=== PATIENT | male | born 1945 | race Caucasian/White ===

== ENCOUNTER → 2018-01-16 | Outpatient (CLI) | payer OTHER | LOC: M.ULTRA 07:33 | DX: N18.3 Chronic kidney disease, stage 3 (moderate) (principal) ==

== ENCOUNTER 2019-04-30 17:30 | Inpatient (IN) | payer OTHER ==
[~2019-04-30] VITALS: Ht 190.5 cm; Wt 115.2 kg
[2019-04-30 17:35] VITALS: BP 164/75
[2019-04-30] MEDS ORDERED: SYNTHROID150 MCG PO (17:38)
[2019-04-30] MEDS ORDERED: VITAMIN D3400 UNIT PO (17:39)
[2019-04-30] MEDS ORDERED: HYDROCHLOROTH12.5 M1 PO (17:39)
--- NOTE | 2019-04-30 17:40 | NUR ---
DR. BARBER AT BEDSIDE WITH PATIENT.
[2019-04-30 17:57] LABS: ABSOLUTE EOSINOPHILS 0.2 thou/uL (0.0-0.7); ABSOLUTE LYMPHOCYTES 1.6 thou/uL (0.8-5.3); ABSOLUTE MONOCYTES 0.7 thou/uL (0.0-1.2); BASOPHILS 0.3 %; EOSINOPHILS 2.3 %; HEMATOCRIT 40.7 % (42.0-52.0); HEMOGLOBIN 13.7 gm/dL (14.0-18.0); LYMPHOCYTES 24.4 %; MCH 31.1 pg (26.0-34.0); MCHC 33.7 g/dL (28.0-37.0); MCV 92.2 fL (80.0-100.0); MONOCYTES 11.1 %; MPV 8.1 fl. (7.2-11.1); NUCLEATED RBCS 0 /100WBC; PLATELET COUNT* 217 thou/uL (150-400); POLYS 61.9 %; RBC 4.42 mil/uL (4.50-6.00); RDW-CV 13.3 % (10.5-14.5); WBC 6.5 thou/uL (4.0-11.0)
[2019-04-30 18:22] LABS: CALCIUM 9.1 mg/dL (8.5-10.1); CREATININE 2.6 mg/dL (0.6-1.3); POTASSIUM 4.7 mmol/L (3.5-5.1)
[2019-04-30 18:24] LABS: APTT 27.7 Seconds (25.0-31.3); INR 1.1; PROTIME 10.8 Seconds (9.20-11.50)
[2019-04-30 18:38] LABS: ALBUMIN 4.1 g/dL (3.4-5.0); TOTAL BILIRUBIN 0.5 mg/dL (<0.1-1.0); TOTAL PROTEIN 7.8 g/dL (6.4-8.2)
[2019-04-30 18:39] LABS: TROPONIN-I LEVEL 0.6 ng/mL (<0.06)
[2019-04-30 19:57] VITALS: BP 138/66
[2019-04-30 21:18] LABS: URINE BILIRUBIN NEGATIVE (Negative); URINE BLOOD 2+ (Negative); URINE CLARITY CLEAR; URINE COLOR YELLOW; URINE GLUCOSE-RANDOM NEGATIVE (Negative); URINE KETONES NEGATIVE (Negative); URINE LEUKOCYTES-REFLEX NEGATIVE (Negative); URINE NITRITE-REFLEX NEGATIVE (Negative); URINE PROTEIN 2+ (Negative); URINE UROBILINOGEN 0.2 E.U./dl (0.2-1.0)
[2019-04-30 21:29] LABS: HYALINE CASTS 0-3 Few /LPF (None Seen); URINE RBC 0-2 Rare /HPF (0-2); URINE WBC-REFLEX 0-5 Rare /HPF (0-5)
[2019-04-30 21:30] LABS: BACTERIA-REFLEX None Seen /HPF (None Seen); CRYSTALS None Seen /LPF (None Seen); MUCUS None Seen strn/LPF (None Seen); SQUAMOUS NONE SEEN /LPF (0-3)
[2019-04-30] MEDS ORDERED: GLIPIZIDE ER2.5 MG PO (22:01)
[2019-04-30] MEDS ORDERED: LIPITOR10 MG PO (22:01)
[2019-04-30] MEDS ORDERED: NORVASC10 MG PO (22:02)
[2019-04-30 23:30] VITALS: BP 124/59
[2019-05-01] VITALS (14 sets, daily range): BP systolic 103–160; BP diastolic 53–80
[2019-05-01 05:01] LABS: ABSOLUTE BASOPHILS 0.1 thou/uL (0.0-0.2); ABSOLUTE EOSINOPHILS 0.2 thou/uL (0.0-0.7); ABSOLUTE LYMPHOCYTES 1.5 thou/uL (0.8-5.3); ABSOLUTE MONOCYTES 0.6 thou/uL (0.0-1.2); ABSOLUTE NEUTROPHILS 2.3 thou/uL (1.6-8.1); BASOPHILS 1.7 %; EOSINOPHILS 3.7 %; HEMATOCRIT 36.5 % (42.0-52.0); HEMOGLOBIN 12.5 gm/dL (14.0-18.0); LYMPHOCYTES 32.7 %; MCH 31.2 pg (26.0-34.0); MCHC 34.2 g/dL (28.0-37.0); MCV 91.3 fL (80.0-100.0); MONOCYTES 13.7 %; MPV 7.6 fl. (7.2-11.1); NUCLEATED RBCS 0 /100WBC; PLATELET COUNT* 185 thou/uL (150-400); POLYS 48.2 %; RDW-CV 13.1 % (10.5-14.5); WBC 4.7 thou/uL (4.0-11.0)
[2019-05-01 05:10] LABS: CALCIUM 8.7 mg/dL (8.5-10.1); CREATININE 2.3 mg/dL (0.6-1.3); POTASSIUM 4.1 mmol/L (3.5-5.1)
--- NOTE | 2019-05-01 06:56 | NUR ---
RECEIVED REPORT FROM ELECTRICAL APPLIANCE SERVICER DAHIANA AT 1950. PT ARRIVED TO UNIT AT 2009. NURSING ASSESSMENT COMPLETED, DENIES PAIN, SR/SB/ JUNCTIONAL RHYTHM ON FAMILY PRACTICE PHYSICIAN. AT 041, PT C/O CHEST PAIN AND LEFT ARM PAIN. DR. STEWART NOTIFIED, NEW ORDERS RECEIVED. PT VERBALIZED IMPROVEMENT OF CHEST PAIN WITH NITRO PASTE, HEPARIN DRIP INFUSING. HOURLY ROUNDING COMPLETED, CALL LIGHT WITHIN REACH. NEGATIVE SEPSIS PROTOCOL.
--- NOTE | 2019-05-01 08:47 | NUR ---
ASSUMED CARE OF PT THIS AM AROUND 0715- INTENSIVE CARE UNIT REGISTERED NURSE IN PLACE ORDERED, TRACING SB/PAC- UPON ASSESSMENT PT NOTED TO BE RESTING IN BED- PT A&O X4-CONTINENT OF BOWEL AND BLADDER- UP AD-BRENDA IN ROOM, STEADY GAIT- LCTA, RESP EVEN AND UN-LABORED- VSS, O2 STAT 97% ON 2L VIA NC-ABD SOFT/ROUND/NON-TENDER, BS X4 QUADS- LAST BM REPORTED 04/30/19- IV NOTED TO RIGHT AC INTACT, IVF INFUSSING WELL HEPARIN DRIP PER PROTOCOL- PT CURRENLTY NPO PENDING CARDIO EVAL AND PLANS- RATES LEFT SHOULDER PAIN/ELBOW 11/04 THIS AM- NITRO PASTE IN PLACE PRESCIBED- CALL LIGHT AND PEROSONAL BELONGINGS WITH IN REACH- PT MAKES NEEDS KNOWN- ALL NEEDS MET AT THIS TIME-WCTM
[2019-05-01 09:47] LABS: CHOLESTEROL 66 mg/dL (<200); HDL CHOLESTEROL 26 mg/dL (>40); LDL CHOLESTEROL 25 mg/dL (<100); TC:HDL 2.5 Ratio (Not establshd); TRIGLYCERIDE 79 mg/dL (<150); VLDL 16 mg/dL (<40)
[2019-05-01 09:50] LABS: SERUM ASSESSMENT Clear
--- NOTE | 2019-05-01 11:27 | NUR ---
SW met with pt to complete initial assessment, introduce self, and SW role. Pt was sleeping, pt had multiple family members in room visiting: children, , grandchild. Pt lives at home with and pt is independent with ADLs and mobility. Pt family is very supportive and do not know of any dc needs at this time. SW to continue to follow to assist with safe dc planning.
--- NOTE | 2019-05-01 16:06 | NUR ---
PT NOTED TO HAVE LEFT UNIT AT 1100 THIS SHIFT FOR HEART CATH ORDERED AND RETURNED AT 1350- RIGHT GROIN ACCESSED WITH 1 STENT REPORTED TO HAVE BEEN PLACED TO MID LAD- GROIN NOTED WITH TRANSPARENT GAUZE DRESSING IN PLACE, NO HEMATOMA NOTED- RT LEG IMMOBILIZATION INSTRUCTED- VS 97.4 18 143/75 56 97% ON 2L- VS PER PROTOCOL IN PLACE- UPON RETURNING TO UNIT PT NOTED TO BE IN ALOT OF PAIN RATING 10/10 TO LEFT ARM AND BACK- PRN HYDROCODONE GIVEN AT 1415 WITH LITTLE EFFECTIVENESS- AND FENT 50MCG X1 AT 1449 GIVEN ORDERED- PT REPORTS MEDICATIONS TO BE EFFECTIVE- ECHO COMPLETED THIS SHIFT ORDERED, RESULTS PENDING- FAMILY CURRENLTY AT SIDE- CALL LIGHT AND PERSONAL BELONGINGS WITH IN REACH- ALL NEEDS MET AT THIS TIME-[facility]
--- NOTE | 2019-05-01 16:42 | 2DMMODE ---
[place] [id number] 2 D/M-MODE ECHOCARDIOGRAM Name: KARAL TURCIOS Room: [address] IN [facility]#: [id number] Admission: 04/30/19 Attend Phys: Koby Rios, Discharge: Date of : 45 Date of Service: 05/01/19 1642 Report #: [id number] THIS REPORT FOR: //name// APPROVED REPORT Study performed: 05/01/2019 14:43:43 EXAM: Comprehensive 2D, Doppler, and color-flow Echocardiogram Patient Location: In-Patient Room #: 200 Status: routine BSA: 2.43 HR: 57 bpm BP: 120/60 mmHg Rhythm: NSR Other Information Technically limited study due to inability to position patient. Indications Non STEMI Left Ventricle The left ventricle is normal size. There is normal LV segmental wall motion. There is normal left ventricular wall thickness. The left ventricular systolic function is normal. The left ventricular ejection fraction is within the normal range. LVEF is 60-65%. Right Ventricle The right ventricle is normal size. The right ventricular systolic function is normal. Atria The left atrium size is normal. The right atrium size is normal. Aortic Valve Mild aortic valve sclerosis. No aortic regurgitation is present. Mitral Valve The mitral valve is normal in structure. There is no mitral valve regurgitation noted. [address] [address] 2 D/M-MODE ECHOCARDIOGRAM Name: KARLA TURCIOS Room: [address] IN M.R.#: [id number] Admission: 04/30/19 Attend Phys: Koby Rios, Discharge: Date of : 45 Date of Service: 05/01/191641 Report #: [id number] Tricuspid Valve Tricuspid valve is not well visualized. Pulmonic Valve Pulmonic valve is not well visualized. Great Vessels The aortic root is normal in size. Pericardium There is no pericardial effusion. There is no pleural effusion. <Conclusion> The left ventricle is normal size. There is normal left ventricular wall thickness. The left ventricular systolic function is normal. The left ventricular ejection fraction is within the normal range. LVEF is 60-65%. The right ventricle is normal size. The left atrium size is normal. Mild aortic valve sclerosis. The mitral valve is normal in structure. There is no pericardial effusion. There is normal LV segmental wall motion. <ELECTRONICALLY SIGNED> By: Eduin Mendoza MD, [facility] 05/01/191641 41 Eduin Mendoza MD, FACC /INF
--- NOTE | 2019-05-01 18:14 | EKG ---
[place] [address] ELECTROCARDIOGRAM REPORT Name: KARLA TURCIOS Room: [address] ADM IN M.R.#: [id number] Admission: 04/30/19 Attend Phys: Koby Rios MD Discharge: Date of : 45 Report #: [id number] THIS REPORT FOR: //name// [facility] ED Test Date: 2019-04-30 Test Time: 17:38:33 Pat Name: KARLA TURCIOS Department: Room: [facility] Gender: M Antiquer: : 1945 Requested By: Jose Escamilla Order Number: [id number] MD: Baldomero Talbot Measurements Intervals [place] Rate: 61 P: -45 NE: 157 QRS: 49 QRSD: 124 T: 72 QT: 404 QTc: 407 Interpretive Statements Sinus or ectopic atrial rhythm Nonspecific intraventricular conduction delay Compared to ECG 02/18/2007 07:43:05 Ectopic atrial rhythm now present Sinus rhythm no longer present Sinus arrhythmia no longer present First degree AV block no longer present Electronically Signed On 05-01-2019 18:14:01 CDT by Baldomero Talbot [email or web address] <ELECTRONICALLY SIGNED> By: Baldomero Talbot MD, FACC 05/01/19 1814 1738 1738 Baldomero Talbot MD, [facility] /EPI
--- NOTE | 2019-05-01 18:16 | EKG ---
[place] [address] ELECTROCARDIOGRAM REPORT Name: KARLA TURCIOS Room: [address] ADM IN M.R.#: [id number] Admission: 04/30/19 Attend Phys: Koby Rios MD Discharge: Date of : 45 Report #: [id number] THIS REPORT FOR: //name// [facility] Test Date: 2019-05-01 Test Time: 04:14:23 Pat Name: KARLA TURCIOS Department: Room: [address] Gender: M Mold Cleaner: [facility] : 1945 Requested By: Koby Rios Order Number: [id number] Reading MD: Baldomero Talbot Measurements Intervals [place] Rate: 48 P: -75 SC: 195 QRS: 62 QRSD: 136 T: 106 QT: 436 QTc: 390 Interpretive Statements Ectopic atrial bradycardia Nonspecific intraventricular conduction delay Compared to ECG 02/18/2007 07:43:05 Bradycardia, nonsinus now present First degree AV block no longer present Electronically Signed On 05-01-2019 18:16:30 CDT by Baldomero Talbot [email or web address] <ELECTRONICALLY SIGNED> By: Baldomero Talbot MD, [facility] 05/01/19 1816 0414 0414 Baldomero Talbot MD, [facility] /EPI
--- NOTE | 2019-05-01 18:19 | EKG ---
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: : 1945 Requested By: Eduin Mendoza Order Number: [id number] Yonatan MD: Baldomero Talbot Measurements Intervals [place] Rate: 57 P: -65 MD: 189 QRS: 58 QRSD: 123 T: 61 QT: 458 QTc: 446 Interpretive Statements Sinus or ectopic atrial rhythm Left bundle branch block Compared to ECG 02/18/2007 07:43:05 Ectopic atrial rhythm now present Left bundle-branch block now present Sinus rhythm no longer present Sinus arrhythmia no longer present First degree AV block no longer present Intraventricular conduction delay no longer present Electronically Signed On 05-01-2019 18:19:36 CDT by Baldomero Talbot [email or web address] <ELECTRONICALLY SIGNED> By: Baldomero Talbot MD, FACC 05/01/19 1819 1411 141 Baldomero Talbot MD, FACC /EPI
[2019-05-02] VITALS: BP 110/56
[2019-05-02 04:00] VITALS: BP 135/67
[2019-05-02 04:37] LABS: ABSOLUTE BASOPHILS 0.1 thou/uL (0.0-0.2); ABSOLUTE EOSINOPHILS 0.2 thou/uL (0.0-0.7); ABSOLUTE MONOCYTES 0.6 thou/uL (0.0-1.2); ABSOLUTE NEUTROPHILS 3.1 thou/uL (1.6-8.1); BASOPHILS 1.4 %; EOSINOPHILS 3.9 %; HEMATOCRIT 38.4 % (42.0-52.0); HEMOGLOBIN 12.9 gm/dL (14.0-18.0); MCH 31.1 pg (26.0-34.0); MCHC 33.5 g/dL (28.0-37.0); MCV 92.9 fL (80.0-100.0); MONOCYTES 12.6 %; MPV 7.9 fl. (7.2-11.1); NUCLEATED RBCS 0 /100WBC; PLATELET COUNT* 188 thou/uL (150-400); POLYS 62.1 %; RBC 4.14 mil/uL (4.50-6.00); RDW-CV 13.3 % (10.5-14.5)
--- NOTE | 2019-05-02 04:45 | NUR ---
ASSUMED PT CARE AT 1915. PT VOICED NO CONCERNS AT START OF SHIFT. DENIES PAIN THIS SHIFT. HOURLY ROUNDING COMPLETED. RIGHT GROIN DRESSING CLEAN,DRY,INTACT. CALL LIGHT WITHIN REACH. IVF INFUSING.
[2019-05-02 05:16] LABS: ALBUMIN 3.4 g/dL (3.4-5.0); CALCIUM 8.4 mg/dL (8.5-10.1); CREATININE 1.9 mg/dL (0.6-1.3); POTASSIUM 4.6 mmol/L (3.5-5.1); TOTAL BILIRUBIN 0.5 mg/dL (<0.1-1.0); TOTAL PROTEIN 6.4 g/dL (6.4-8.2); TROPONIN-I LEVEL 0.55 ng/mL (<0.06)
[2019-05-02 07:57] VITALS: BP 109/67
--- NOTE | 2019-05-02 08:52 | NUR ---
ASSUMED CARE OF PT THIS AM AROUND 07- REGIONAL FORESTER IN PLACE ORDERED, TRACING SR WITH BBB- UPON ASSESSMENT PT NOTED TO BE RESTING IN BED- PT A&O X4- CONTINENT OF B/B- SBA WITH TRANSFERS FOR SAFETY- LCTA, RESP EVEN AND UN-LABORED- VSS, O2 SAT 98% ON RA- ABD SOFT/ROUND/NON-TENDER, BS X4 QUADS- LAST BM REPORTED 05/01/19- IV NOTED TO RIGHT AC INTACT, IVF INFUSSING PRESCIBED- GOOD PO INTAKE NOTED THIS AM WITH BREAKFAST, BS MONITORED ORDERED- RIGHT GROIN C/D/I WITH NO HEMATOMA NOTED; DRESSING CHANGED PER CN THIS AM- PT DENIES ANY C/O PAIN/DISCOMFORT AT THIS TIME- CALL LIGHT AND PERSONAL BELONGINGS WITH IN REACH- PT MAKES NEEDS KNOWN- ALL NEEDS MET AT THIS TIME-WCTM
[2019-05-02 09:27] VITALS: BP 141/70
[2019-05-02 09:33] VITALS: BP 141/70
[2019-05-02] MEDS ORDERED: NITROGLYCERIN0.4 MG SUBLING (09:39)
[2019-05-02] MEDS ORDERED: EFFIENT10 MG PO (09:40)
[2019-05-02] MEDS ORDERED: ASPIR 8181 MG PO (09:43)
[2019-05-02 11:13] VITALS: BP 141/70
--- NOTE | 2019-05-02 11:32 | NUR ---
ORDERS RECEIVED FOR OKAY TO D/C TO HOME PER AND CARDIOLOGY- IV TO RIGHT AC AND BABY COUNSELOR D/C'D PRIOR TO D/C- D/C EDUCATION/TEACHING/NEEDED FOLLOW UP'S COMMUNICATED TO PT WITH VERBAL UNDERSTANDING NOTED PER PT- WRITTEN EDUCATION ALONG WITH SCRIPTS PROVIDED TO PT AT TIME OF D/C- ALL QUESTIONS AND CONCERNS ADDRESSED PRIOR TO D/C- BELONGINGS PACKED AND ACCOUNTED FOR PER PT AND - PT ESCORTED PER VOLUNTEER VIA W/C WITH BELONGINGS, AT SIDE TO VEHICLE AT 1140- NO PROBLEMS TO NOTE AT TIME OF D/C
--- NOTE | 2019-05-02 11:55 | EKG ---
[place] [address] ELECTROCARDIOGRAM REPORT Name: KARLA TURCIOS Room: [address] DIS IN M.R.#: [id number] Admission: 04/30/19 Attend Phys: Koby Rios MD Discharge: 05/02/19 Date of : 45 Report #: [id number] THIS REPORT FOR: //name// [facility] Test Date: 2019-05-02 Test Time: 06:35:18 Pat Name: KARLA TURCIOS Department: Room: [address] Gender: M Gauntlet Pairer: STEFANIA : 1945 Requested By: Eduin Mendoza Order Number: [id number] Reading MD: Eddi Gaytan Measurements Intervals [place] Rate: 53 P: -57 ND: 197 QRS: 47 QRSD: 127 T: 78 QT: 434 QTc: 408 Interpretive Statements Sinus or ectopic atrial rhythm Left bundle branch block Baseline wander in lead(s) V2 Compared to ECG 05/01/2019 14:11:25 No significant changes Electronically Signed On 05-02-2019 11:55:09 CDT by Eddi Gaytan [email or web address] <ELECTRONICALLY SIGNED> By: Santosh Gaytan MD, [facility] 05/02/19 1155 0635 0635 Santosh Gaytan MD, [facility] /EPI
--- NOTE | 2019-05-04 11:43 | CARD ---
[address] [address] CARDIAC CATH REPORT Name: KARLA TURCIOS Ginger Room: [address] IN .R.#: [id number] Admission: 04/30/19 Attend Phys: Koby Rios MD Discharge: 05/02/19 Date of : 45 Report #: [id number] THIS REPORT FOR: //name// APPROVED REPORT Study performed: 05/01/2019 11:37:05 Patient Details The patient is a 73 year-old male Event Personnel Eduin Mendoza Vp Analytics, Arlin Moreno RN Real Estate Acquisition Analyst, Kenton Santiago AIRDROP SYSTEMS TECHNICIAN Scrub, Gianna Zhou RTR Scrub, Saba Mckinney RTR Monitor Procedures Performed Art Access - R femoral artery* Left Heart Cath w/or w/o Coronaries [id number] [facility] SAV Place w/wo Plasty Single LAD [id number] Indication Non-STEMI Risk Factors Hypercholesterolemia, Hypertension Admission/Lab Medications/Medications given during procedure Midazolam (Versed) IV 2 mg total, Fentanyl IV 50 mcg total, Lidocaine Subcut 15 ml, Angiomax IV bolus 17 mg per kg, Angiomax Drip IV 23 ml per hr, Effient PO 60 mg, Aspirin PO 182 mg Procedure Narrative The patient was brought electively to the Cardiac Catheterization Laboratory and was prepped and draped in a sterile manner. The right femoral was infiltrated with 2% Lidocaine subcutaneous anesthesia. A Alexander 6 FR sheath was inserted into the right femoral artery. Coronary angiography was performed using coronary diagnostic catheters. The right coronary system was accessed and visualized with a 6F JR4 catheter. The left coronary system was accessed and visualized with a 6F JL4 catheter. The left ventricle was accessed and visualized with a 6F JL4 catheter. Left ventricular/Aortic Valve gradient assessed via catheter pullback. Pre-demployment femoral angiogram was performed . The patient tolerated the procedure well and there were no complications associated [place] [address] CARDIAC CATH REPORT Name: KARLA TURCIOS Room: [address] IN [facility]#: [id number] Admission: 04/30/19 Attend Phys: Koby Rios MD Discharge: 05/02/19 Date of : 45 Report #: [id number] was no hematoma. Intraoperative Conscious Sedation Sedation start time: 12:08 Case end Time: 13:18 Fentanyl 50.0 mcg Versed 2 mg Fluoro Time: 23.4 minutes Dose: DAP 008986 cGycm2 3982 mGy Contrast Type and Amount: Visipaque 200 ml Coronary Angiography The patient's coronary anatomy is right dominant. Diagnostic Cath Left Main 0% narrowing LAD 90% calcified proximalmid LAD stenosis Circumflex Tandem 70% stenosis of the midportion of the posterior division of the nondominant circumflex Right Coronary 40% mid vessel narrowing and 50% distal narrowing and 75% ostial posterior descending branch stenosis Left Ventriculography Left Ventriculography was not performed. Hemodynamics The aortic pressure is 141/56 mmHg with a mean of 54 mmHg. The left ventricular pressure is 137/0 mmHg with a mean of mmHg. The left ventricular end diastolic pressure is 11 mmHg. PCI Technique Lesion Anticoagulation was achieved with Angiomax. Patient was preloaded with Angiomax IV 17 mg per kg. Percutaneous coronary intervention was performed on the mid left anterior descending artery segmentmid left anterior descending artery segment. The lesion stenosis prior to intervention was 90% with ARA 3 flow. A 6FR XB 3.5 100CM Guide Catheter was used to engage the LCA ostium. A ProwaterFlex 180CM Interventional Guidewire was used to cross the lesion. BALLOON DILATION A Balloon catheter NC Trek RX 2.25x12 was inserted and inflated up to 18.00atm for 20seconds. Additional Inflation: 18.00atm for 15seconds. Additional Inflation: 18.00atm for 13seconds. Balloon catheter NC Trek RX 2.5 x 15 was inserted and inflated up to 14 adin for 11 seconds. Additional Inflation: 17 adin, 13 seconds. Additional Inflation: 18 adin, 13 [place] [address] CARDIAC CATH REPORT Name: KARLA TURCIOS Room: [address] IN .R.#: [id number] Admission: 04/30/19 Attend Phys: Koby Rios MD Discharge: 05/02/19 Date of : 45 Report #: [id number] STENT DEPLOYMENT A drug-eluting stent Luning RX Stent 2.5X38mm was inserted and inflated up to 12.00atm for 19seconds. Additional Inflation: 15.00atm for 17seconds. POST STENT DEPLOYMENT BALLOON DILATION A Balloon catheter NC Trek RX 2.75 X 12 was inserted and inflated up to 10.00atm for 14seconds. Additional Inflation: 12.00atm for 15seconds. Additional Inflation: 16.00atm for 15seconds. Balloon catheter NC Trek RX 3.0 x 12 was inserted and inflated up to 16 adin for 15 seconds. Additional inflation: 18 adin, 19 seconds. Additional inflation: 17 adin, 13 seconds. Final angiography reveals 10 % stenosis with ARA 3 flow. Conclusion #1 significant multivessel coronary artery disease characterized by the following: A 90% tubular proximalmid calcified LAD stenosis B tandem 70% stenoses of the modest-sized midportion of the posterior division of the nondominant circumflex C dominant right coronary artery with 40% mid vessel narrowing 50% distal narrowing and 75% ostial posterior descending branch narrowing #2 normal left-sided hemodynamic study #3 successful percutaneous coronary intervention with deployment of drug-eluting stent at site of 90% tubular proximalmid LAD stenosis with 10% residual narrowing and ARA-3 flow the distal vessel Recommendations Cardiac Risk Reduction Program Aggressive Medical Therapy Medications Administered Aspirin (any) [place] [address] CARDIAC CATH REPORT Name: KARLA TURCIOS Room: [address] IN [facility]#: [id number] Admission: 04/30/19 Attend Phys: Koby Rios MD Discharge: 05/02/19 Date of : 45 Report #: [id number] Diagnostic Cath Approved by: Eduin Mendoza MD Date/Time: 05/04/2019 11:42:01 <ELECTRONICALLY SIGNED> By: Eduin Mendoza MD, FACC 05/04/19 1142 1142 1142Joreyna Mendoza MD, FACC /INF
== END 2019-05-02 11:39 | disposition home or self-care (01) | DRG 246 ==
LOC: M.ERS 17:30 → M.TBA-ER 18:41 → M.2W 18:41
PROVIDERS: Family Medicine; Registered Nurse; ADMIT Internal Medicine
PROC: B211YZZ Fluoroscopy of Multiple Coronary Arteries using Other Contrast (ICD-10-PCS; principal; 2019-05-01)
PROC: 027034Z Dilation of Coronary Artery, One Artery with Drug-eluting Intraluminal Device, Percutaneous Approach (ICD-10-PCS; principal; 2019-05-01)
PROC: B41FYZZ Fluoroscopy of Right Lower Extremity Arteries using Other Contrast (ICD-10-PCS; principal; 2019-05-01)
PROC: 4A023N7 Measurement of Cardiac Sampling and Pressure, Left Heart, Percutaneous Approach (ICD-10-PCS; principal; 2019-05-01)
DX: I21.4 Non-ST elevation (NSTEMI) myocardial infarction (principal); N17.0 Acute kidney failure with tubular necrosis; I50.31 Acute diastolic (congestive) heart failure; I13.0 Hypertensive heart and chronic kidney disease with heart failure and stage 1 through stage 4 chronic kidney disease, or unspecified chronic kidney disease; E78.5 Hyperlipidemia, unspecified; E11.22 Type 2 diabetes mellitus with diabetic chronic kidney disease; N18.9 Chronic kidney disease, unspecified; Z90.49 Acquired absence of other specified parts of digestive tract; Z88.0 Allergy status to penicillin; Z79.82 Long term (current) use of aspirin; Z79.899 Other long term (current) drug therapy

== ENCOUNTER → 2020-11-20 | Day surgery (SDC) | payer OTHER ==
[~2020-11-20] MED LIST: ASPIR 8181 MG PO; EFFIENT10 MG PO; GLIPIZIDE ER2.5 MG PO; HYDROCHLOROTH12.5 M1 PO; HYDROCODON-ACE1 EAC7 PO; LIPITOR10 MG PO; NITROGLYCERIN0.4 MG SUBLING; NORVASC10 MG PO; PLAVIX 75 MG TA75 MG PO; SYNTHROID150 MCG PO; VITAMIN D31250 MC1 PO; VITAMIN D3400 UNIT PO
--- NOTE | ~2020-11-20 | OP ---
[facility] [address] [place] [address] OPERATIVE REPORT Name: KARLA TURCIOS [id number] Admission: 11/20/20 Attend Phys: Gerardo Valente Discharge: Date of : 45 Report #: [id number] THIS REPORT FOR: cc: ANAT ONOFRE MD, HEATHER L. MD ~ Gerardo Valente MD DATE OF SERVICE: 11/20/2020 PREOPERATIVE DIAGNOSIS: Left inguinal hernia. POSTOPERATIVE DIAGNOSIS: Left inguinal hernia. OPERATION: Laparoscopic repair of a left inguinal hernia with mesh. SURGEON: Gerardo Valente MD ANESTHESIA: General. ESTIMATED BLOOD LOSS: Minimal. SPECIMEN: None. DESCRIPTION OF PROCEDURE: After informed consent was obtained, the patient was brought to the operating room and placed supine. SCDs were placed and working, preoperative antibiotics were administered, general anesthesia was induced. The abdomen was prepped and draped in usual sterile fashion after Vásquez catheter was placed. A 5 mm incision was made in the left upper quadrant. A 5 mm trocar was placed under direct vision. Pneumoperitoneum was established. A supraumbilical 5 mm trocar was placed. A right lower quadrant 10 mm trocar and a left lower quadrant 5 mm trocar were placed under direct vision. The patient was placed in Trendelenburg position. The peritoneum at the left ASIS was scored. Peritoneum was then incised medially and reflected inferiorly. I identified the cord structures. I identified the pubic bone. The iliac vessels were protected at all times. He had a very large indirect hernia sac as well as a cord lipoma. This was all reduced. A large Bard 3DMax mesh was inserted. It was placed into the pocket. It covered the direct and indirect spaces nicely. The peritoneum was then closed with a running 2-0 V-Loc suture. I incorporated bites of the mesh and the abdominal wall to keep the mesh in place. The area was instilled with 10 mL of 0.5% Marcaine solution. The ports were removed under direct vision. A 10 mm incision was closed by closing the fascia with a [id number]-vakgz 0 [place] [address] OPERATIVE REPORT Name: KARLA TURCIOS Ginger Room: [facility]#: [id number] Admission: 11/20/20 Attend Phys: Gerardo Valente Discharge: Date of : 45 Report #: [id number] skin was closed with 4-0 Monocryl. Incisions were dressed with Steri-Strips. COMPLICATIONS: None. DISPOSITION: The patient was taken to recovery in satisfactory condition. By: [id number] Valente MD /nt
[2020-11-20 08:45] LABS: HEMATOCRIT 47.2 % (42.0-52.0); HEMOGLOBIN 15.6 gm/dL (14.0-18.0); MCH 30.6 pg (26.0-34.0); MCV 92.7 fL (80.0-100.0); MPV 7.2 fl. (7.2-11.1); RBC 5.09 mil/uL (4.50-6.00); RDW-CV 13.3 % (10.5-14.5); WBC 8.6 thou/uL (4.0-11.0)
[2020-11-20 08:55] LABS: CALCIUM 9.3 mg/dL (8.5-10.1); POTASSIUM 4.2 mmol/L (3.5-5.1)
--- NOTE | 2020-11-20 10:57 | EKG ---
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: : 1945 Requested By: Gerardo Valente Order Number: [id number] Yonatan MD: Eduin Mendoza Measurements Intervals [place] Rate: 67 P: 20 AK: 267 QRS: 75 QRSD: 130 T: 57 QT: 413 QTc: 436 Interpretive Statements Sinus rhythm Prolonged AK interval Nonspecific intraventricular conduction delay Compared to ECG 05/02/2019 06:35:18 First degree AV block now present Intraventricular conduction delay is more prominent Ectopic atrial rhythm no longer present Left bundle-branch block no longer present Electronically Signed On 11-20-2020 10:57:38 CDT by Eduin Mendoza [email or web address] <ELECTRONICALLY SIGNED> By: Eduin Mendoza MD, FACC 11/20/20 1057 0851 0851 Eduin Mendoza MD, FAC /EPI
== END | disposition home or self-care (01) ==
LOC: M.SUR 06:31
PROVIDERS: ATTEND Surgery
DX: K40.90 Unilateral inguinal hernia, without obstruction or gangrene, not specified as recurrent (principal); E11.22 Type 2 diabetes mellitus with diabetic chronic kidney disease; I25.10 Atherosclerotic heart disease of native coronary artery without angina pectoris; I21.4 Non-ST elevation (NSTEMI) myocardial infarction; N18.30 Chronic kidney disease, stage 3 unspecified; M19.90 Unspecified osteoarthritis, unspecified site; Z90.49 Acquired absence of other specified parts of digestive tract; Z98.890 Other specified postprocedural states; Z79.82 Long term (current) use of aspirin; Z79.899 Other long term (current) drug therapy; Z95.5 Presence of coronary angioplasty implant and graft; Z87.891 Personal history of nicotine dependence; Z20.822 Contact with and (suspected) exposure to COVID-19

== ENCOUNTER → 2021-01-11 | Outpatient (CLI) | payer OTHER ==
--- NOTE | 2021-01-11 16:07 | CARDNUC ---
[place] [address] CARDIAC NUCLEAR IMAGING REPORT Name: KARLA TURCIOS Room: [facility]#: [id number] Admission: 01/11/21 Attend Phys: Marlene Castellanos Discharge: Date of : 45 Date of Service: 01/11/21 1607 Report #: [id number] THIS REPORT FOR: cc: ANAT ONOFRE MD, HEATHER L. MD Park, Jin S. MD ~ APPROVED REPORT Study performed: 01/11/2021 08:45:00 Indication: Increased fatigue Patient Location: Out-Patient Stress Tech: Thuy Iyer Stress Nurse: Donna Sow RN Ht: 6 ft 4 in Wt: 225 lbs BSA: 2.33 m2 BMI: 27.38 Medical History Medical History: Increased fatigue, CKD stage III, HX chest pain with left arm pain, CHF, HX hernia surgery, DM II, HTN, HLD, CAD s/p IA, CAD s/p stent, past smoker, FHX CAD, HX Back surgery, back pain. Medications: NTG, Amlodipine, ASA 81 Mg, Prasugrel. Allergies: [facility] Cardiac Risk Factors: Age, DM, FHX of CAD, HTN, Hyperlipidemia, Past Smoker, CKD III, CHF. Previous Cardiac Procedures: Myocardial infarction, PCI. Pretest Chest Pain Characteristics: No chest pain Exercise History: Indeterminate Physical Disabilities: Back pain, shuffled gait. Meds Held (24 hrs): NTG. Resting Data Rest SPECT myocardial perfusion imaging was performed in supine position 30 minutes following the intravenous injection of 10.1 mCi of Tc-99m Sestamibi. Time of rest injection: 09:00 The images were gated to evaluate regional wall motion and calculate left ventricular ejection fraction. Administration Route: IV Administration Site: Right [place] [address] CARDIAC NUCLEAR IMAGING REPORT Name: KARLA TURCIOS Room: [facility]#: [id number] Admission: 01/11/21 Attend Phys: Marlene Castellanos Discharge: Date of : 45 Date of Service: 01/11/21 1607 Report #: [id number] Pharmacologic stress test was performed by injecting Regadenoson 0.4 mg IV push over 10-15 seconds immediately followed by the intravenous injection of 32.8 mCi of Tc-99m Sestamibi. Time of stress injection: 10:50 Administration Route: IV Administration Site: Right Arm Heart Rate at time of stress injection: 96 bpm. Gated Stress SPECT was performed 40 minutes after stress injection. The images were gated to evaluate regional wall motion and calculate left ventricular ejection fraction. Prone imaging was performed. Stress Test Details Stress Test: Pharmacologic stress testing performed using 0.4 mg of regadenoson per 5 mL given IV over 10 seconds. Reason for pharmacologic stress test: Back pain, shuffled gait.. HR Max Heart Rate (APMHR): 145 bpm Resting HR: 72 bpm Target HR (85% APMHR): 123 bpm Max HR Achieved: 96 bpm % of APMHR: 66 Recovery HR: 77 bpm BP Resting BP: 148/72 mmHg Max BP: 124/58 mmHg Recovery BP: 129/67 mmHg ECG Resting ECG: Sinus Rhythm, nonspecific ST-T abnormalities Stress ECG: Sinus Rhythm, nonspecific ST-T abnormalities ST Change: Non-ischemic Clinical Reason for Termination: Completed protocol Stress Symptoms: None voiced. Exercise duration: 00 min 00 sec Exercise capacity: 1.00 METs Nurse Comments A 75 year old male presented for a sitting Lexiscan. Test well tolerated. Recovery unremarkable. Patient was stable and stated he felt good when escorted to Nuclear [place] [address] CARDIAC NUCLEAR IMAGING REPORT Name: KAROLINAKARLA Miles Room: [facility]#: [id number] Admission: 01/11/21 Attend Phys: Marlene Castellanos Discharge: Date of : 45 Date of Service: 01/11/21 1607 Report #: [id number] Study Quality Study: Good Artifact: Mild Diaphragmatic artifact Study Data Post stress, the left ventricular ejection was 58%.. SSS: 2 SRS: 0 SDS: 2 TID = 0.90. Perfusion There is a small area of mildly reduced uptake in the apical segment of the inferior wall which is seen on the stress images as well as the resting images. This area thickens and moves normally and is most consistent with attenuation artifact. Wall Motion Normal left ventricular wall motion. Nuclear Conclusion ECG Findings: negative for ischemia Clinical Findings: non-diagnostic Nuclear Findings: negative for ischemia Exercise Capacity: not assessed Left Ventricular Function: normal This study is of low probability for inducible ischemia or prior infarct. Normal global and segmental LV systolic function. Artifact: Mild Diaphragmatic artifact <ELECTRONICALLY SIGNED> By: Thierry Garcia MD 01/11/21 1607 1607 1607 Thierry Garcia MD /INF
== END ==
LOC: M.NUC 11-17 15:31 → M.CRD 12-04 09:00 → M.NUC 12-04 10:00 → M.CRD 12-04 10:00 → M.NUC 12-21 08:00
PROVIDERS: ATTEND Internal Medicine
DX: I21.4 Non-ST elevation (NSTEMI) myocardial infarction (principal); E11.9 Type 2 diabetes mellitus without complications; I25.10 Atherosclerotic heart disease of native coronary artery without angina pectoris; Z95.5 Presence of coronary angioplasty implant and graft

== ENCOUNTER 2021-07-29 12:21 | Observation (INO) | payer OTHER ==
[~2021-07-29] VITALS: Ht 193 cm; Wt 98.4 kg
[2021-07-29 12:23] VITALS: BP 116/64
[2021-07-29 12:55] LABS: ABSOLUTE EOSINOPHILS 0.2 thou/uL (0.0-0.7); ABSOLUTE LYMPHOCYTES 1.8 thou/uL (0.8-5.3); ABSOLUTE MONOCYTES 0.5 thou/uL (0.0-1.2); ABSOLUTE NEUTROPHILS 3.6 thou/uL (1.6-8.1); BASOPHILS 0.1 %; EOSINOPHILS 2.7 %; HEMATOCRIT 40.6 % (42.0-52.0); HEMOGLOBIN 13.9 gm/dL (14.0-18.0); LYMPHOCYTES 29.8 %; MCH 31.6 pg (26.0-34.0); MCHC 34.3 g/dL (28.0-37.0); MCV 92.1 fL (80.0-100.0); MONOCYTES 8.5 %; MPV 7.3 fl. (7.2-11.1); NUCLEATED RBCS 0 /100WBC; PLATELET COUNT* 265 thou/uL (150-400); POLYS 58.9 %; RBC 4.41 mil/uL (4.50-6.00); RDW-CV 13.7 % (10.5-14.5); WBC 6.1 thou/uL (4.0-11.0)
[2021-07-29 13:09] LABS: CREATININE 2.2 mg/dL (0.6-1.3); POTASSIUM 4.5 mmol/L (3.5-5.1)
--- NOTE | 2021-07-29 13:16 | EKG ---
[place] [address] ELECTROCARDIOGRAM REPORT Name: KARLA TURCIOS Room: [facility]#: [id number] Admission: Attend Phys: Discharge: Date of : 45 Date of Service: 07/29/21 1223 Report #: [id number] THIS REPORT FOR: //name// [facility] ED Test Date: 2021-07-29 Test Time: 12:23:26 Pat Name: KARLA TURCIOS Department: Room: Gender: M Flagger: DURAN : 1945 Requested By: Renato Chaparro Order Number: [id number] MD: Eduin Mendoza Measurements Intervals [place] Rate: 78 P: 28 [place]: 236 QRS: 30 QRSD: 122 T: 65 QT: 400 QTc: 456 Interpretive Statements Sinus rhythm Prolonged [place] interval Nonspecific intraventricular conduction delay Compared to ECG 11/20/2020 08:51:25 No significant change Electronically Signed On 07-29-2021 13:16:27 BI DEVELOPER by Eduin Mendoza [email or web address] <ELECTRONICALLY SIGNED> By: Eduin Mendoza MD, [facility] 07/29/21 1316 1223 1223 Eduin Mendoza MD, FAC /EPI
[2021-07-29 17:30] VITALS: BP 110/70
[2021-07-29 18:21] LABS: CHOLESTEROL 126 mg/dL (<200); HDL CHOLESTEROL 31 mg/dL (>40); LDL CHOLESTEROL 62 mg/dL (<100); TC:HDL 4.1 Ratio (Not establshd); TRIGLYCERIDE 166 mg/dL (<150); VLDL 33 mg/dL (<40)
[2021-07-29 18:23] LABS: SERUM ASSESSMENT Clear
[2021-07-29 20:21] VITALS: BP 110/70
[2021-07-29 21:00] VITALS: BP 134/78
[2021-07-30 06:36] VITALS: BP 129/71
[2021-07-30 08:16] VITALS: BP 140/70
[2021-07-30 08:28] LABS: ABSOLUTE BASOPHILS 0.1 thou/uL (0.0-0.2); ABSOLUTE EOSINOPHILS 0.2 thou/uL (0.0-0.7); ABSOLUTE LYMPHOCYTES 1.5 thou/uL (0.8-5.3); ABSOLUTE MONOCYTES 0.5 thou/uL (0.0-1.2); ABSOLUTE NEUTROPHILS 2.3 thou/uL (1.6-8.1); BASOPHILS 2.5 %; EOSINOPHILS 4.5 %; HEMATOCRIT 39.1 % (42.0-52.0); HEMOGLOBIN 13.2 gm/dL (14.0-18.0); LYMPHOCYTES 32.4 %; MCH 30.9 pg (26.0-34.0); MCHC 33.8 g/dL (28.0-37.0); MCV 91.4 fL (80.0-100.0); MPV 7.1 fl. (7.2-11.1); NUCLEATED RBCS 0 /100WBC; PLATELET COUNT* 240 thou/uL (150-400); POLYS 50.6 %; RBC 4.27 mil/uL (4.50-6.00); RDW-CV 13.5 % (10.5-14.5); WBC 4.6 thou/uL (4.0-11.0)
[2021-07-30 08:47] LABS: CALCIUM 8.6 mg/dL (8.5-10.1); CREATININE 1.8 mg/dL (0.6-1.3); POTASSIUM 4.4 mmol/L (3.5-5.1)
[2021-07-30 11:23] VITALS: BP 139/69
[2021-07-30 12:40] VITALS: BP 139/69
== END 2021-07-30 13:00 | disposition home or self-care (01) ==
LOC: M.ERS 12:21 → M.TBA-ER 13:35 → M.2W 21:20
PROVIDERS: Emergency Medicine; Registered Nurse; ADMIT Internal Medicine; ATTEND Internal Medicine
DX: R07.89 Other chest pain (principal); Z20.822 Contact with and (suspected) exposure to COVID-19; I25.10 Atherosclerotic heart disease of native coronary artery without angina pectoris; E11.22 Type 2 diabetes mellitus with diabetic chronic kidney disease; N18.30 Chronic kidney disease, stage 3 unspecified; N17.9 Acute kidney failure, unspecified; Z79.899 Other long term (current) drug therapy; Z79.84 Long term (current) use of oral hypoglycemic drugs